=== PATIENT | female | born 1970 | race Native Hawaiian/Other Pacific Islander ===

== ENCOUNTER 2021-05-18 16:21 | Outpatient (CLI) | payer BC | END 2021-05-18 19:09 | disposition home or self-care (01) | LOC: RESP 16:21 | PROVIDERS: ATTEND Nurse Practitioner Family | DX: R07.9 Chest pain, unspecified (principal) | CPT/HCPCS: 93225 ==

== ENCOUNTER 2021-06-06 15:04 | Outpatient (CLI) | payer BC | END 2021-06-06 19:05 | disposition home or self-care (01) | LOC: RESP 15:04 | PROVIDERS: ATTEND Nurse Practitioner Family | DX: Z13.820 Encounter for screening for osteoporosis (principal); Z82.62 Family history of osteoporosis; R07.9 Chest pain, unspecified ==